=== PATIENT | female | born 2000 | race Two or more races ===

== ENCOUNTER 2023-04-11 11:04 | Inpatient (IN) | payer MEDICAID ==
[~2023-04-11] VITALS: Ht 165.1 cm; Wt 107.0 kg
[2023-04-11 12:08] LABS: COVID AG,FIA SOURCE NASAL SWAB
[2023-04-11 12:10] LABS: BASOPHILS % (AUTO) 0.6 % (0.0-2.0); EOSINOPHILS % (AUTO) 0.3 % (1.0-6.0); HEMATOCRIT 37.3 % (36-46); HEMOGLOBIN 11.5 g/dL (12.0-16.0); LYMPHOCYTES # (AUTO) 1.3 K/uL (1.0-4.8); LYMPHOCYTES % (AUTO) 11.3 % (22.0-44.0); MEAN CORPUSCULAR HEMOGLOBIN 20.5 pg (26.0-34.0); MEAN CORPUSCULAR HGB CONC 30.9 G/dL (31.0-37.0); MEAN CORPUSCULAR VOLUME 67 fL (80-100); MONOCYTES # (AUTO) 0.6 K/uL (0.1-1.0); MONOCYTES % (AUTO) 4.9 % (2.0-9.0); NEUTROPHILS # (AUTO) 9.5 K/uL (1.8-7.7); NEUTROPHILS % (AUTO) 82.9 % (40.0-70.0); PLATELET COUNT (AUTO) 395 K/uL (150-450); RED CELL DISTRIBUTION WIDTH 21.4 % (11.5-14.5); WHITE BLOOD COUNT (AUTO) 11.5 K/uL (4.5-11.0)
[2023-04-11] MEDS ORDERED: ZOLPIDEM TARTRATE 10 MG TABLET PO PRN (12:15)
[2023-04-11] MEDS ORDERED: OLANZapine 5 MG RAPDIS TABLET PO PRN (12:15)
[2023-04-11 12:31] LABS: RBC MORPHOLOGY COMMENT ABNORMAL RBC MORPH
[2023-04-11 12:34] LABS: ANION GAP 10 mmol/L (8-16); CALCIUM, TOTAL 8.9 mg/dL (8.8-10.5); CARBON DIOXIDE 28 mmol/L (22-29); CHLORIDE 104 mmol/L (98-107); GLOMERULAR FILTR. RATE CALC > 60 mL/min (>60); GLUCOSE,RANDOM 101 mg/dL (70-110); POTASSIUM 3.6 mmol/L (3.5-5.1); SODIUM SERUM 142 mmol/L (136-145); UREA NITROGEN, BLOOD 10 mg/dL (7-18)
[2023-04-11 12:34] LABS: SARS-COV2 (COVID) ANTIGEN,FIA Negative (Negative)
[2023-04-11 12:39] LABS: ALANINE AMINOTRANSFERASE 23 U/L (12-78); ALBUMIN 3.8 g/dL (3.4-5.0); ALKALINE PHOSPHATASE 70 U/L (46-116); ASPARTATE AMINOTRANSFERASE 14 U/L (15-37); BILIRUBIN,TOTAL 0.3 mg/dL (0.1-1.0); LIPASE 32 U/L (16-77)
[2023-04-11 12:40] LABS: ALCOHOL, BLOOD (SERUM) < 3 mg/dL (0-10)
[2023-04-11 12:43] LABS: ACETAMINOPHEN < 2 mcg/mL (10-30)
[2023-04-11 12:46] LABS: SALICYLATE 1.3 mg/dL (2.8-20.0)
[2023-04-11 15:10] VITALS: BP 122/79; PULSE 67; RESP 18; TEMP 98.2
[2023-04-11] MEDS ORDERED: PNEUMOCOCCAL VACCINE POLYVALENT 0.5 ML SYRINGE [PPSV23] IM. ONE (17:00)
[2023-04-11] MEDS ORDERED: INFLUENZA VIRUS VACCINE QVS 2023-24 (6MO+)/PF 60 MCG/0.5 ML SYRINGE IM. ONE (17:00)
[2023-04-11 20:56] VITALS: BP 133/82; PULSE 81; RESP 19; TEMP 97.6
[2023-04-11] MEDS ORDERED: LOPERAMIDE HCL 2 MG CAPSULE PO PRN (21:15)
[2023-04-11] MEDS ORDERED: MAG HYDROX/ALUMINUM HYD/SIMETH ES 30 ML SUSPENSION UDCUP PO PRN (21:15)
[2023-04-11] MEDS ORDERED: PROMETHAZINE HCL 25 MG TABLET PO PRN (21:15)
[2023-04-11] MEDS ORDERED: TUBERCULIN, PURIFIED PROTEIN DERIVATIVE 5 TU/0.1 ML SYRINGE ID ONE (21:15)
[2023-04-11] MEDS ORDERED: MAGNESIUM HYDROXIDE SUSPENSION 30 ML UDCUP PO PRN (21:15)
[2023-04-11] MEDS ORDERED: ACETAMINOPHEN 325 MG TABLET PO PRN (21:15)
[2023-04-11] MEDS ORDERED: HydrOXYzine PAMOATE 50 MG CAPSULE PO PRN (21:15)
[2023-04-11] MEDS ORDERED: GuaiFENesin/D-METHORPHAN [SUGAR-FREE] 200-20MG/10 ML SYRUP UDCUP PO PRN (21:15)
[2023-04-12 06:07] LABS: BASOPHILS % (AUTO) 0.6 % (0.0-2.0); EOSINOPHILS % (AUTO) 1.5 % (1.0-6.0); HEMATOCRIT 35.3 % (36-46); HEMOGLOBIN 10.7 g/dL (12.0-16.0); LYMPHOCYTES # (AUTO) 2.3 K/uL (1.0-4.8); LYMPHOCYTES % (AUTO) 29.1 % (22.0-44.0); MEAN CORPUSCULAR HEMOGLOBIN 20.2 pg (26.0-34.0); MEAN CORPUSCULAR HGB CONC 30.3 G/dL (31.0-37.0); MEAN CORPUSCULAR VOLUME 67 fL (80-100); MONOCYTES # (AUTO) 0.7 K/uL (0.1-1.0); MONOCYTES % (AUTO) 8.3 % (2.0-9.0); NEUTROPHILS # (AUTO) 4.8 K/uL (1.8-7.7); NEUTROPHILS % (AUTO) 60.5 % (40.0-70.0); PLATELET COUNT (AUTO) 322 K/uL (150-450); RED BLOOD CELL COUNT(AUTO) 5.31 MIL/uL (4.00-5.20); RED CELL DISTRIBUTION WIDTH 21.3 % (11.5-14.5)
[2023-04-12 06:17] LABS: HEMOGLOBIN A1C 5.3 % (3.8-5.6)
[2023-04-12 06:35] LABS: ALANINE AMINOTRANSFERASE 20 U/L (12-78); ALBUMIN 3.1 g/dL (3.4-5.0); ALKALINE PHOSPHATASE 64 U/L (46-116); ANION GAP 6 mmol/L (8-16); ASPARTATE AMINOTRANSFERASE 12 U/L (15-37); BILIRUBIN,TOTAL 0.4 mg/dL (0.1-1.0); CALCIUM, TOTAL 8.7 mg/dL (8.8-10.5); CARBON DIOXIDE 29 mmol/L (22-29); CHLORIDE 104 mmol/L (98-107); CHOL/HDL RATIO 2.5 (3.9-5.7); CHOLESTEROL 111 mg/dL (131-200); CREATININE 0.65 mg/dL (0.60-1.30); GLOMERULAR FILTR. RATE CALC > 60 mL/min (>60); GLUCOSE,RANDOM 86 mg/dL (70-110); HDL CHOLESTEROL 45 mg/dL (40-60); LDL CHOL (CALC.) 50 mg/dL (0-130); POTASSIUM 3.5 mmol/L (3.5-5.1); SODIUM SERUM 139 mmol/L (136-145); THYROID STIMULATING HORMONE 2.11 uIU/mL (0.36-3.74); TOTAL PROTEIN, SERUM 6.7 g/dL (6.4-8.2); TRIGLYCERIDES 78 mg/dL (15-150); UREA NITROGEN, BLOOD 15 mg/dL (7-18)
[2023-04-12 08:45] LABS: RBC MORPHOLOGY COMMENT ABNORMAL RBC MORPH
[2023-04-12 09:03] VITALS: BP 117/58; PULSE 67; RESP 18; TEMP 97.9
[2023-04-12] MEDS: THIAMINE 100 MG TABLET PO SCH (09:58)
[2023-04-12] MEDS: FOLIC ACID 1 MG TABLET PO SCH (09:59)
[2023-04-12] MEDS: MULTIVITAMINS WITH MINERALS, THERAPEUTIC TABLET PO SCH (09:59)
[2023-04-12] MEDS: LORazepam 2 MG TABLET PO PRN (12:10)
[2023-04-12 12:12] VITALS: BP 136/66; PULSE 70; RESP 18
[2023-04-12] MEDS ORDERED: GuaiFENesin/D-METHORPHAN [SUGAR-FREE] 200-20MG/10 ML SYRUP UDCUP PO PRN (19:15)
[2023-04-12] MEDS ORDERED: HydrOXYzine PAMOATE 50 MG CAPSULE PO PRN (19:15)
[2023-04-12] MEDS ORDERED: LOPERAMIDE HCL 2 MG CAPSULE PO PRN (19:15)
[2023-04-12] MEDS ORDERED: TUBERCULIN, PURIFIED PROTEIN DERIVATIVE 5 TU/0.1 ML SYRINGE ID ONE (19:15)
[2023-04-12] MEDS ORDERED: MAGNESIUM HYDROXIDE SUSPENSION 30 ML UDCUP PO PRN (19:15)
[2023-04-12] MEDS ORDERED: PROMETHAZINE HCL 25 MG TABLET PO PRN (19:15)
[2023-04-12] MEDS ORDERED: MAG HYDROX/ALUMINUM HYD/SIMETH ES 30 ML SUSPENSION UDCUP PO PRN (19:15)
[2023-04-12] MEDS ORDERED: ACETAMINOPHEN 325 MG TABLET PO PRN (19:15)
[2023-04-12] MEDS: MELATONIN 5 MG TABLET PO SCH (21:03)
[2023-04-12 21:04] VITALS: BP 115/69; PULSE 77; RESP 18; TEMP 97.2
[2023-04-13] MEDS: FERROUS SULFATE 325 MG EC TABLET PO SCH (07:12)
[2023-04-13] MEDS: LURASIDONE HCL 60 MG TABLET PO SCH (07:12)
[2023-04-13 07:41] LABS: BASOPHILS % (AUTO) 0.9 % (0.0-2.0); EOSINOPHILS % (AUTO) 1.1 % (1.0-6.0); HEMATOCRIT 36.1 % (36-46); HEMOGLOBIN 11.2 g/dL (12.0-16.0); LYMPHOCYTES # (AUTO) 2.2 K/uL (1.0-4.8); LYMPHOCYTES % (AUTO) 27.5 % (22.0-44.0); MEAN CORPUSCULAR HEMOGLOBIN 20.6 pg (26.0-34.0); MEAN CORPUSCULAR HGB CONC 30.9 G/dL (31.0-37.0); MEAN CORPUSCULAR VOLUME 67 fL (80-100); MONOCYTES # (AUTO) 0.6 K/uL (0.1-1.0); MONOCYTES % (AUTO) 7.8 % (2.0-9.0); NEUTROPHILS % (AUTO) 62.7 % (40.0-70.0); PLATELET COUNT (AUTO) 354 K/uL (150-450); RED BLOOD CELL COUNT(AUTO) 5.43 MIL/uL (4.00-5.20); RED CELL DISTRIBUTION WIDTH 20.7 % (11.5-14.5)
[2023-04-13 08:00] VITALS: BP 137/86; PULSE 74; RESP 18; TEMP 97.8
[2023-04-13 08:02] LABS: LITHIUM < 0.20 mmol/L (0.60-1.20)
[2023-04-13 08:03] LABS: CHOL/HDL RATIO 2.7 (3.9-5.7); CHOLESTEROL 124 mg/dL (131-200); HDL CHOLESTEROL 46 mg/dL (40-60); LDL CHOL (CALC.) 60 mg/dL (0-130); TRIGLYCERIDES 88 mg/dL (15-150)
[2023-04-13 08:07] LABS: HEMOGLOBIN A1C 5.2 % (3.8-5.6)
[2023-04-13 08:16] LABS: RBC MORPHOLOGY COMMENT ABNORMAL RBC MORPH
[2023-04-13] MEDS ORDERED: THIAMINE 100 MG TABLET PO SCH (09:00)
[2023-04-13] MEDS ORDERED: FOLIC ACID 1 MG TABLET PO SCH (09:00)
[2023-04-13] MEDS ORDERED: MULTIVITAMINS WITH MINERALS, THERAPEUTIC TABLET PO SCH (09:00)
[2023-04-13] MEDS: OMEGA-3/DHA/EPA/FISH OIL 1,000 MG CAPSULE PO SCH (11:39)
[2023-04-13] MEDS: NALTREXONE HCL 50 MG TABLET PO SCH (11:39)
[2023-04-13] MEDS: LITHIUM CARBONATE 300 MG CAPSULE PO SCH (11:40)
[2023-04-13] MEDS ORDERED: LURA60TA4 PO (19:14)
[2023-04-13] MEDS ORDERED: OMEG-135 PO (19:14)
[2023-04-13] MEDS ORDERED: LITH300C3 PO (19:14)
[2023-04-13] MEDS ORDERED: NALT50TA33 PO (19:14)
[2023-04-13] MEDS ORDERED: MELA5TAB40 PO (19:14)
[2023-04-13 21:02] VITALS: BP 129/76; PULSE 74; RESP 18; TEMP 97.5
[2023-04-14 09:24] VITALS: BP 118/73; PULSE 67; RESP 18; TEMP 98.6
== END 2023-04-14 15:45 | disposition home or self-care (01) | DRG 750 ==
LOC: EMS 11:04 → 3EI 14:16
PROVIDERS: ADMIT Psychiatry & Neurology Psychiatry; ATTEND Psychiatry & Neurology Psychiatry
PROC: GZHZZZZ Group Psychotherapy (ICD-10-PCS; principal; 2023-04-12)
PROC: GZ51ZZZ Individual Psychotherapy, Behavioral (ICD-10-PCS; 2023-04-12)
DX: F25.1 Schizoaffective disorder, depressive type (principal); R45.851 Suicidal ideations; D50.9 Iron deficiency anemia, unspecified; F12.10 Cannabis abuse, uncomplicated; F10.10 Alcohol abuse, uncomplicated; K80.20 Calculus of gallbladder without cholecystitis without obstruction; Z20.822 Contact with and (suspected) exposure to COVID-19; T57.91XA Toxic effect of unspecified inorganic substance, accidental (unintentional), initial encounter; F15.10 Other stimulant abuse, uncomplicated; I10 Essential (primary) hypertension; Z55.9 Problems related to education and literacy, unspecified; Z59.9 Problem related to housing and economic circumstances, unspecified; Z63.9 Problem related to primary support group, unspecified; Z65.3 Problems related to other legal circumstances; Z91.51 Personal history of suicidal behavior; Y92.89 Other specified places as the place of occurrence of the external cause
CPT/HCPCS: 80053; 80061; 80178; 83036; 83690; 84439; 84443; 84703; 85025; 86592; 93005; 99285; G0480; G0481; Q9967

== ENCOUNTER 2024-03-19 13:13 | Inpatient (IN) | payer MEDICAID ==
[~2024-03-19] VITALS: Ht 165.1 cm; Wt 111.3 kg
[~2024-03-19 13:13] MED LIST: LITH300C3 PO; LURA60TA4 PO; MELA5TAB40 PO; NALT50TA33 PO; OMEG-135 PO
[2024-03-19 15:04] LABS: COVID AG,FIA SOURCE NASAL SWAB
[2024-03-19 15:13] LABS: BASOPHILS % (AUTO) 0.7 % (0.0-2.0); EOSINOPHILS % (AUTO) 0.9 % (1.0-6.0); HEMATOCRIT 35.3 % (36-46); HEMOGLOBIN 10.8 g/dL (12.0-16.0); LYMPHOCYTES # (AUTO) 1.7 K/uL (1.0-4.8); LYMPHOCYTES % (AUTO) 14.8 % (22.0-44.0); MEAN CORPUSCULAR HEMOGLOBIN 20.6 pg (26.0-34.0); MEAN CORPUSCULAR HGB CONC 30.6 G/dL (31.0-37.0); MEAN CORPUSCULAR VOLUME 68 fL (80-100); MONOCYTES # (AUTO) 0.8 K/uL (0.1-1.0); MONOCYTES % (AUTO) 7.2 % (2.0-9.0); NEUTROPHILS # (AUTO) 8.8 K/uL (1.8-7.7); NEUTROPHILS % (AUTO) 76.4 % (40.0-70.0); PLATELET COUNT (AUTO) 341 K/uL (150-450); RED BLOOD CELL COUNT(AUTO) 5.23 MIL/uL (4.00-5.20); RED CELL DISTRIBUTION WIDTH 18.1 % (11.5-14.5); WHITE BLOOD COUNT (AUTO) 11.6 K/uL (4.5-11.0)
[2024-03-19 15:24] LABS: ANION GAP 4 mmol/L (8-16); CALCIUM, TOTAL 8.7 mg/dL (8.8-10.5); CARBON DIOXIDE 30 mmol/L (22-29); CHLORIDE 104 mmol/L (98-107); CREATININE 0.74 mg/dL (0.60-1.30); GLOMERULAR FILTR. RATE CALC > 60 mL/min (>60); GLUCOSE,RANDOM 102 mg/dL (70-110); POTASSIUM 4.3 mmol/L (3.5-5.1); SODIUM SERUM 138 mmol/L (136-145); UREA NITROGEN, BLOOD 10 mg/dL (7-18)
[2024-03-19 15:30] LABS: SARS-COV2 (COVID) ANTIGEN,FIA Negative (Negative)
[2024-03-19 15:32] LABS: ALCOHOL, BLOOD (SERUM) < 3 mg/dL (0-10)
[2024-03-19 15:46] LABS: RBC MORPHOLOGY COMMENT ABNORMAL RBC MORPH
[2024-03-19] MEDS ORDERED: OLANZapine 5 MG RAPDIS TABLET PO PRN (17:00)
[2024-03-19] MEDS ORDERED: MAG HYDROX/ALUMINUM HYD/SIMETH ES 30 ML SUSPENSION UDCUP PO PRN (17:00)
[2024-03-19] MEDS ORDERED: HydrOXYzine PAMOATE 50 MG CAPSULE PO PRN (17:00)
[2024-03-19] MEDS ORDERED: ACETAMINOPHEN 325 MG TABLET PO PRN (17:00)
[2024-03-19] MEDS ORDERED: MAGNESIUM HYDROXIDE SUSPENSION 30 ML UDCUP PO PRN (17:00)
[2024-03-19] MEDS ORDERED: MELATONIN 5 MG TABLET PO PRN (17:00)
[2024-03-19] MEDS ORDERED: PROMETHAZINE HCL 25 MG TABLET PO PRN (17:00)
[2024-03-19] MEDS ORDERED: GuaiFENesin/D-METHORPHAN [SUGAR-FREE] 200-20MG/10 ML SYRUP UDCUP PO PRN (17:00)
[2024-03-19] MEDS ORDERED: LOPERAMIDE HCL 2 MG CAPSULE PO PRN (17:00)
[2024-03-19] MEDS ORDERED: LURASIDONE HCL 20 MG TABLET PO PRN (17:15)
[2024-03-19 20:00] VITALS: O2SAT 98
[2024-03-19] MEDS: LORazepam 2 MG TABLET PO PRN (20:50)
[2024-03-19] MEDS: ZOLPIDEM TARTRATE 10 MG TABLET PO PRN (20:50)
[2024-03-19] MEDS: THIAMINE 100 MG TABLET PO SCH (20:51)
[2024-03-19] MEDS ORDERED: OLANZapine 5 MG RAPDIS TABLET PO SCH (21:00)
[2024-03-19] MEDS: LURASIDONE HCL 60 MG TABLET PO SCH (21:19)
[2024-03-19] MEDS: LITHIUM CARBONATE 300 MG CAPSULE PO SCH (21:19)
[2024-03-20 02:10] VITALS: BP 135/84; PULSE 81; RESP 18; TEMP 98.1; O2SAT 99
[2024-03-20] MEDS ORDERED: INFLUENZA VIRUS VACCINE TVS (6MO+) 2024-25/PF 45 MCG/0.5 ML SYRINGE IM. ONE (03:30)
[2024-03-20 08:05] VITALS: RESP 17
[2024-03-20 08:11] LABS: HEMOGLOBIN A1C 5.3 % (3.8-5.6)
[2024-03-20 08:21] LABS: CHOL/HDL RATIO 2.3 (3.9-5.7)
[2024-03-20 08:44] LABS: LITHIUM 0.6 mmol/L (0.60-1.20)
[2024-03-20] MEDS: OMEGA-3/DHA/EPA/FISH OIL 1,000 MG CAPSULE PO SCH (09:05)
[2024-03-20] MEDS: MULTIVITAMINS WITH MINERALS, THERAPEUTIC TABLET PO SCH (09:05)
[2024-03-20] MEDS: FOLIC ACID 1 MG TABLET PO SCH (09:05)
[2024-03-20] MEDS: FLUoxetine HCL 20 MG CAPSULE PO SCH (09:06)
[2024-03-20] MEDS: NICOTINE 21 MG/24 HOUR PATCH TD SCH (13:21)
[2024-03-20 20:10] VITALS: BP 116/67; PULSE 87; RESP 18; TEMP 98.2; O2SAT 97
[2024-03-21 08:15] VITALS: BP 100/66; PULSE 72; RESP 16; TEMP 97.9; O2SAT 99
[2024-03-21 09:00] LABS: BASOPHILS % (AUTO) 0.7 % (0.0-2.0); EOSINOPHILS % (AUTO) 3.3 % (1.0-6.0); HEMATOCRIT 30.9 % (36-46); HEMOGLOBIN 9.5 g/dL (12.0-16.0); LYMPHOCYTES # (AUTO) 2.3 K/uL (1.0-4.8); LYMPHOCYTES % (AUTO) 28.5 % (22.0-44.0); MEAN CORPUSCULAR HEMOGLOBIN 21.1 pg (26.0-34.0); MEAN CORPUSCULAR HGB CONC 30.8 G/dL (31.0-37.0); MEAN CORPUSCULAR VOLUME 68 fL (80-100); MONOCYTES # (AUTO) 0.7 K/uL (0.1-1.0); MONOCYTES % (AUTO) 8.8 % (2.0-9.0); NEUTROPHILS # (AUTO) 4.8 K/uL (1.8-7.7); NEUTROPHILS % (AUTO) 58.7 % (40.0-70.0); PLATELET COUNT (AUTO) 292 K/uL (150-450); RED BLOOD CELL COUNT(AUTO) 4.53 MIL/uL (4.00-5.20); RED CELL DISTRIBUTION WIDTH 18.7 % (11.5-14.5); WHITE BLOOD COUNT (AUTO) 8.2 K/uL (4.5-11.0)
[2024-03-21 09:26] LABS: RBC MORPHOLOGY COMMENT ABNORMAL RBC MORPH
[2024-03-21 20:07] VITALS: BP 123/82; PULSE 110; RESP 19; TEMP 97.3; O2SAT 100
[2024-03-21] MEDS: LURASIDONE HCL 80 MG TABLET PO SCH (20:28)
[2024-03-22 08:27] VITALS: BP 118/76; PULSE 74; RESP 19; TEMP 97.8; O2SAT 99
[2024-03-22] MEDS ORDERED: FLUO-418 PO (11:04)
[2024-03-22] MEDS ORDERED: LITH300C3 PO (11:04)
[2024-03-22] MEDS ORDERED: LURA40TA2 PO (11:04)
[2024-03-22] MEDS ORDERED: OMEG100033 PO (11:04)
[2024-03-22] MEDS ORDERED: LURASIDONE HCL 40 MG TABLET PO SCH (21:00)
== END 2024-03-22 13:15 | disposition home or self-care (01) | DRG 750 ==
LOC: EMS 13:13 → B2S 22:06 → B3A 22:56 → B2S 03-21 13:24
PROVIDERS: ADMIT Psychiatry & Neurology Psychiatry; ATTEND Psychiatry & Neurology Psychiatry
PROC: GZHZZZZ Group Psychotherapy (ICD-10-PCS; principal; 2024-03-20)
PROC: GZ58ZZZ Individual Psychotherapy, Cognitive-Behavioral (ICD-10-PCS; 2024-03-20)
PROC: GZ56ZZZ Individual Psychotherapy, Supportive (ICD-10-PCS; 2024-03-21)
PROC: GZ51ZZZ Individual Psychotherapy, Behavioral (ICD-10-PCS; 2024-03-22)
DX: F25.9 Schizoaffective disorder, unspecified (principal); E66.9 Obesity, unspecified; F14.10 Cocaine abuse, uncomplicated; Z20.822 Contact with and (suspected) exposure to COVID-19; F31.9 Bipolar disorder, unspecified; I10 Essential (primary) hypertension; F15.10 Other stimulant abuse, uncomplicated; Z59.00 Homelessness unspecified; F41.1 Generalized anxiety disorder; Z87.891 Personal history of nicotine dependence; Z68.41 Body mass index [BMI] 40.0-44.9, adult
CPT/HCPCS: 80048; 80061; 80178; 83036; 85025; 86592; 99285; G0480